=== PATIENT | female | born 1985 | race American Indian/Alaskan Native ===

== ENCOUNTER 2016-12-29 06:12 | Emergency (ER) | payer MEDICAID ==
[2016-12-29 06:50] LABS: Basophils % (Auto) 0.8 % (0.0-1.8); Eosinophils % (Auto) 3.6 % (0.0-4.3); Hematocrit 35.7 % (30.3-42.9); Mean Corpuscular HGB Conc 34 % (30-34); Mean Corpuscular Hemoglobin 28 pg (28-32); Mean Corpuscular Volume 84 fl (79-97); Platelet Count 186 K/mm3 (140-440); Red Blood Count 4.25 M/mm3 (3.65-5.03); Red Cell Distribution Width 14.5 % (13.2-15.2); White Blood Count 7.3 K/mm3 (4.5-11.0)
[2016-12-29 07:12] LABS: Alanine Aminotransferase 10 units/L (7-56); Albumin 3.5 g/dL (3.9-5); Albumin/Globulin Ratio 1.1 %; Alkaline Phosphatase 66 units/L (35-129); Anion Gap 16 mmol/L; Blood Urea Nitrogen 19 mg/dL (7-17); Calcium 8.7 mg/dL (8.4-10.2); Carbon Dioxide 23 mmol/L (22-30); Chloride 104.3 mmol/L (98-107); Glucose 106 mg/dL (65-100); Potassium 3.5 mmol/L (3.6-5.0); Sodium 140 mmol/L (137-145); Total Protein 6.8 g/dL (6.3-8.2)
[2016-12-29 08:33] LABS: Bilirubin,Urine NEG (Negative); Blood,Urine NEG (Negative); Ketones,Urine NEG (Negative); Leukocyte Esterase,Urine NEG (Negative); Mucus,Urine 1+ /HPF; Nitrite,Urine NEG (Negative); Protein,Urine <15 mg/dL mg/dL (Negative); Urobilinogen,Urine < 2.0 mg/dL (<2.0)
[2016-12-29] MEDS ORDERED: K-DUR PO ONE (10:33)
[2016-12-29] MEDS ORDERED: ZOFRAN ODT ONE (11:01)
[2016-12-29] MEDS ORDERED: NACL 0.9% 1000 ML 1,000 ML IV ONE (11:06)
[2016-12-29] MEDS ORDERED: ZOFRAN ODT PO ONE (11:06)
[2016-12-29] MEDS ORDERED: ULTRAM PO ONE (11:06)
--- NOTE | 2016-12-29 11:51 | Emergency Department Report ---
ED Abdominal Pain HPI - General Chief Complaint: Abdominal Pain Stated Complaint: LEFT SIDE PAIN Time Seen by Provider: 12/29/16 10:33 Source: patient Mode of arrival: Ambulatory Limitations: No Limitations - History of Present Illness Initial Comments: 31-year-old female with a past medical history previous and tubal ligation presents to the hospital complaining of left lower quadrant abdominal pain 5 days. Pain was initially intermittent and stabbing but now constant. Rated 8/10 in intensity. Worse palpation and movement. No alleviating factors. Patient has been nausea vomiting as well after by mouth intake. Patient as she thought it was due to gas and she took a laxity of without improvement. Subjective fever reported without documented elevated temperature. Patient is sexually active with one partner and has intermittent condom use. Denies vaginal discharge Severity scale (0 -10): 8 - Related Data Home Medications Medication Instructions Recorded Confirmed Last Taken Aspirin/Acetaminophen/Caffeine 1 each PO TID PRN 12/29/16 12/29/16 Unknown [[employer] Ex-Str Powder Packet] Ibuprofen [Motrin] 600 mg PO Q8H PRN 12/29/16 12/29/16 Unknown Previous Rx's Medication Instructions Recorded Last Taken Type Famotidine [Pepcid] 20 mg PO BID #30 tablet 12/29/16 Unknown Rx Ondansetron [Zofran Odt] 4 mg PO Q8HR PRN #20 tab.rapdis 12/29/16 Unknown Rx traMADol [Ultram 50 MG tab] 50 mg PO Q6HR PRN #20 tablet 12/29/16 Unknown Rx Allergies Allergy/AdvReac Type Severity Reaction Status Date / Time shellfish derived Allergy Swelling Verified 10/07/15 10:40 ED Review of Systems ROS: Stated complaint: LEFT SIDE PAIN Other details as noted in HPI Comment: All other systems reviewed and negative Other: Constitutional: As per HPI Eyes: No eye pain visual changes ENT: No ear pain or throat pain Neck: Denies pain Respiratory: Denies cough wheezing shortness of breath Cardiovascular: Denies chest pain, palpitations, syncope GI: As per HPI : Denies dysuria Musculoskeletal: Denies back pain Skin: Denies rash, lesions, erythema Neurologic: Denies headache, numbness, weakness Psychiatric: Denies suicidal ideation, hallucinations ED Past Medical Hx - Past Medical History Previous Medical History?: Yes Additional medical history: OBESITY - Surgical History Past Surgical History?: Yes Hx Breast Surgery: Yes (BREAST REDUCTION) Additional Surgical History: . TUBAL LIGATION - Social History Smoking Status: Never Smoker Substance Use Type: None - Medications Home Medications: Home Medications Medication Instructions Recorded Confirmed Last Taken Type Aspirin/Acetaminophen/Caffeine 1 each PO TID PRN 12/29/16 12/29/16 Unknown History [[employer] Ex-Str Powder Packet] Famotidine [Pepcid] 20 mg PO BID #30 tablet 12/29/16 Unknown Rx Ibuprofen [Motrin] 600 mg PO Q8H PRN 12/29/16 12/29/16 Unknown History Ondansetron [Zofran Odt] 4 mg PO Q8HR PRN #20 tab.rapdis 12/29/16 Unknown Rx traMADol [Ultram 50 MG tab] 50 mg PO Q6HR PRN #20 tablet 12/29/16 Unknown Rx ED Physical Exam - General Limitations: No Limitations - Other Other exam information: General: No limitations, patient is alert in no acute distress Head exam: Atraumatic, normocephalic Eyes exam: Normal appearance ENT: Moist mucous membrane, normal oropharynx Neck exam: Normal inspection, full range of motion, no meningismus nontender Respiratory exam: Clear to auscultation bilateral, no wheezes, rales, crackles Cardiovascular: Normal rate and rhythm, normal heart sounds Abdomen: Soft, nondistended, left lower quadrant tenderness, with normal bowel sounds, no rebound, or guarding. Epigastric tenderness : No vaginal discharge, pain to left lower quadrant with movement of the cervix. Extremity: Full range of motion normal inspection no deformity Back: Normal Inspection, full range of motion, no tenderness Neurologic: Alert, oriented x3, cranial nerves intact, no motor or sensory deficit Psychiatric: normal affect, normal mood Skin: Warm, dry, intact ED Course Vital Signs 12/29/16 12/29/16 06:33 10:27 Temperature 97.6 F 98.9 F Pulse Rate 69 70 Respiratory 20 20 Rate Blood Pressure 100/79 Blood Pressure 132/74 [Left] O2 Sat by Pulse 100 100 Oximetry - Reevaluation(s) Reevaluation #1: 12/29/16 13:27 Patient received Ultram, Zofran, potassium, and normal saline ED Medical Decision Making - Lab Data Result diagrams: 12/29/16 06:40 12/29/16 06:40 Lab Results 12/29/16 12/29/16 12/29/16 Range/Units 06:40 06:40 07:53 WBC 7.3 (4.5-11.0) K/mm3 RBC 4.25 (3.65-5.03) M/mm3 Hgb 12.0 (10.1-14.3) gm/dl Hct 35.7 (30.3-42.9) % MCV 84 (79-97) fl MCH 28 (28-32) pg MCHC 34 (30-34) % RDW 14.5 (13.2-15.2) % Plt Count 186 (140-440) K/mm3 Lymph % (Auto) 42.5 H (13.4-35.0) % Wright % (Auto) 8.6 H (0.0-7.3) % Eos % (Auto) 3.6 (0.0-4.3) % Baso % (Auto) 0.8 (0.0-1.8) % Lymph # 3.1 (1.2-5.4) K/mm3 Wright # 0.6 (0.0-0.8) K/mm3 Eos # 0.3 (0.0-0.4) K/mm3 Baso # 0.1 (0.0-0.1) K/mm3 Seg Neutrophils % 44.5 (40.0-70.0) % Seg Neutrophils # 3.3 (1.8-7.7) K/mm3 Sodium 140 (137-145) mmol/L Potassium 3.5 L (3.6-5.0) mmol/L Chloride 104.3 (98-107) mmol/L Carbon Dioxide 23 (22-30) mmol/L Anion Gap 16 mmol/L BUN 19 H (7-17) mg/dL Creatinine 0.5 L (0.7-1.2) mg/dL Estimated GFR > 60 ml/min BUN/Creatinine Ratio 38.00 % Glucose 106 H (65-100) mg/dL Calcium 8.7 (8.4-10.2) mg/dL Total Bilirubin 0.30 (0.1-1.2) mg/dL AST 11 (5-40) units/L ALT 10 (7-56) units/L Alkaline Phosphatase 66 (35-129) units/L Total Protein 6.8 (6.3-8.2) g/dL Albumin 3.5 L (3.9-5) g/dL Albumin/Globulin Ratio 1.1 % Urine Color Yellow (Yellow) Urine Turbidity Clear (Clear) Urine pH 6.0 (5.0-7.0) Ur Specific [place] 1.027 (1.003-1.030) Urine Protein <15 mg/dl (Negative) mg/dL Urine Glucose (UA) Neg (Negative) mg/dL Urine Ketones Neg (Negative) mg/dL Urine Blood Neg (Negative) Urine Nitrite Neg (Negative) Ur Reducing Substances Not Reportable Urine Bilirubin Neg (Negative) Urine Ictotest Not Reportable Urine Urobilinogen < 2.0 (<2.0) mg/dL Ur Leukocyte Esterase Neg (Negative) Urine WBC (Auto) 1.0 (0.0-6.0) /HPF Urine RBC (Auto) 2.0 (0.0-6.0) /HPF U Epithel Cells (Auto) 10.0 (0-13.0) /HPF Urine Mucus 1+ /HPF Urine HCG, Qual Negative (Negative) wet prep < 20 clue cells, neg yeast and trich, chl/adams pending - Radiology Data Radiology results: report reviewed (CT abdomen and pelvis IV contrast: No acute inflammatory process. Unchanged from 10/07/2015. Positive uterine fibroid 4 cm unchanged) - Medical Decision Making Plan to discharge patient home. Patient be treated for acute nausea vomiting. Patient has left lower question pain but also has a fibroid in this area. No other acute processes identified and other labs and urine results were unremarkable. Patient be treated symptomatically outpatient follow-up will be encouraged - Differential Diagnosis ovarian cyst, diverticulitis, , UTI, gastritis Critical Care Time: No Critical care attestation.: If time is entered above; I have spent that time in minutes in the direct care of this critically ill patient, excluding procedure time. ED Disposition Clinical Impression: Intermittent left lower quadrant abdominal pain, Uterine fibroid Disposition: DISCHARGED TO HOME OR SELFCARE Is pt being admited?: No Does the pt Need Aspirin: No Condition: Stable Instructions: Uterine Fibroids (ED), Abdominal Pain (ED) Additional Instructions: Take the medication as prescribed. Return if symptoms worsen. Follow-up with your doctor, the doctor provided, or the clinic provided for further evaluation. Prescriptions: Famotidine [Pepcid] 20 mg PO BID #30 tablet Ondansetron [Zofran Odt] 4 mg PO Q8HR PRN #20 tab.rapdis PRN Reason: Nausea And Vomiting traMADol [Ultram 50 MG tab] 50 mg PO Q6HR PRN #20 tablet PRN Reason: Pain Referrals: ANN MARIE BRENNAN MD [Primary Care Provider] - 3-5 Days JOSELO NUÑEZ MD [Staff Physician] - 3-5 Days [facility] [Provider Group] - 3-5 Days Time of Disposition: 14:40
--- NOTE | 2016-12-29 12:53 | Cat Scan Report ---
CT SCAN OF THE ABDOMEN AND PELVIS WITH CONTRAST: HISTORY: Left lower quadrant abdominal pain, nausea and vomiting. TECHNIQUE: Helical CT in 1.25mm intervals following IV contrast. Sagittal and coronal reconstructions. FINDINGS: The liver is normal in size and is without focal defect. No gallstones or biliary dilatation are noted. The spleen and pancreas demonstrate a normal size and attenuation with no evidence of abnormal mass. The kidneys are normal in size and position with no evidence of hydronephrosis or mass. The adrenal glands are normal. There is no intestinal obstruction or ascites. Normal appendix. The abdominal aorta is normal. An approximate 4 cm uterine fibroid is suspected in the left lateral uterine wall. The adnexa are within normal limits. There is no evidence of peritoneal air or fluid. There is no evidence of any abnormal masses or fluid collections within the pelvis. No adenopathy is identified. The bladder is normal. IMPRESSION: No acute inflammatory process is appreciated. No overwhelming change since 10/07/15 exam. Uterine fibroid, unchanged.
[2016-12-29 15:14] VITALS: BP 115/70
== END 2016-12-29 15:14 | disposition home or self-care (01) ==
LOC: ED 06:12
DX: D25.9 Leiomyoma of uterus, unspecified (principal); Z98.51 Tubal ligation status; Z79.82 Long term (current) use of aspirin; Z91.013 Allergy to seafood
CPT/HCPCS: 36415; 74177; 80053; 81001; 81025; 85025; 87210; 87591; 96360; 99285; J7030; Q9966; Q0162

== ENCOUNTER 2017-08-15 08:28 | Outpatient (CLI) | payer MEDICAID ==
--- NOTE | 2017-08-15 15:01 | Mammography Report ---
BILATERAL DIGITAL DIAGNOSTIC MAMMOGRAM with CAD and BILATERAL BREAST ULTRASOUND: 08/15/17 09:00:00 CLINICAL: Breast lumps felt by her doctor. Status post bilateral reduction mammoplasty. History of milky discharge was stopped four months ago. Previous cyst aspiration of the left breast. COMPARISON:None available. Her last mammogram was in 2003 at [facility]. FINDINGS: There are bilateral scattered fibroglandular densities.No mass, architectural distortion or suspicious calcifications. Bilateral surgical clips in the lower breasts. Ultrasound of the right breast (including all four quadrants and the retroareolar area) was performed and demonstrated normal fibroglandular and fatty structures. No mass, cyst or shadowing. Ultrasound of the left breast (including all four quadrants and the retroareolar area) was performed and demonstrated normal fibroglandular and fatty structures. No mass, cyst or shadowing. IMPRESSION: Negative mammogram and negative bilateral breast ultrasound. BI-RADS CATEGORY: 1 - - Negative RECOMMENDATION: Clinical followup and routine mammographic screening. ACR BI-RADS MAMMOGRAPHIC CODES: 0 = Needs additional imaging evaluation; 1 = Negative; 2 = Benign; 3 = Probably benign; 4 = Suspicious; 5 = Malignant; 6 = Known biopsy-proven malignancy COMMENT: 1. Dense breast tissue, i.e., adenosis, fibrocystic changes, etc., may obscure an underlying neoplasm. 2. Approximately 10% of cancers are not detected with mammography. 3. A negative mammography report should not delay biopsy if a clinically suspicious mass is present. COMMENT: Patient follow-up letters are generated by our [employer] application.
== END 2017-08-15 08:29 | disposition home or self-care (01) ==
LOC: MAMMO 08:28
PROVIDERS: ATTEND Nurse Practitioner Gerontology
DX: N60.01 Solitary cyst of right breast (principal); N64.52 Nipple discharge; Z98.890 Other specified postprocedural states
CPT/HCPCS: 77066

== ENCOUNTER 2019-10-18 09:00 | Outpatient (CLI) | payer OTHER ==
--- NOTE | 2019-10-18 09:37 | XRay Report ---
CERVICAL SPINE 3 VIEWS INDICATION: NECK PAIN. COMPARISON: None. IMPRESSION: There is mild reversal of the normal cervical lordosis. This could be secondary to posit ioning. There is normal height and alignment of the vertebral bodies otherwise. No evidence for acut e injury or degenerative changes. The prevertebral soft tissues are normal thickness. Delete that LUMBOSACRAL SPINE 3 VIEWS INDICATION: Back pain. COMPARISON: None. IMPRESSION: There is minimal dextrocurvature of the lumbar spine. There is straightening of the norm al lordosis on the lateral image. Mild disc space narrowing and facet arthropathy are identified at L5-S1. The remaining levels are within normal limits. The sacrum and SI joints are unremarkable. No acute osseous or soft tissue abnormality. Signer Name: Avtar Keyes Jr, MD Signed: 10/18/2019 9:32 AM Workstation Name: [id number]
== END 2019-10-18 09:01 | disposition home or self-care (01) ==
LOC: XRAY 09:00
PROVIDERS: ATTEND Internal Medicine
DX: M48.07 Spinal stenosis, lumbosacral region (principal); M43.8X6 Other specified deforming dorsopathies, lumbar region
CPT/HCPCS: 72040; 72100

== ENCOUNTER 2020-05-08 09:02 | Outpatient (CLI) | payer OTHER, MEDICAID ==
--- NOTE | 2020-05-08 10:03 | XRay Report ---
CERVICAL SPINE 3 VIEWS INDICATION: NECK BACK PAIN. COMPARISON: None. IMPRESSION: Normal alignment. Minimal disc space narrowing is identified at C5-6. The remaining lev els are unremarkable. Normal facet joints. No acute osseous or soft tissue abnormality. LUMBOSACRAL SPINE 3 VIEWS INDICATION: NECK BACK PAIN. COMPARISON: None. IMPRESSION: Normal alignment. No significant discogenic DJD or facet arthropathy. No acute osseous or soft tissue abnormality. Signer Name: Avtar Keyes Jr, MD Signed: 05/08/2020 9:58 AM Workstation Name: [id number] [id number]
== END 2020-05-08 09:03 | disposition home or self-care (01) ==
LOC: XRAY 09:02
PROVIDERS: ATTEND Internal Medicine
DX: M48.02 Spinal stenosis, cervical region (principal)
CPT/HCPCS: 72040; 72100